=== PATIENT | female | born 1975 | race American Indian/Alaskan Native ===

== ENCOUNTER 2017-02-10 13:05 | Emergency (ER) | payer OTHER ==
[2017-02-10] MEDS ORDERED: TYLENOL PO ONE ×2 (13:25→18:06)
--- NOTE | 2017-02-10 13:26 | Emergency Department Report ---
Chief Complaint: Fever Stated Complaint: DIAB/LOW BLOOD Time Seen by Provider: 02/10/17 13:20 - HPI History of Present Illness: Pt had fever this morning when EMS for shaking. PT has not treated her fever. Family member states that she was advised to take pt to but pt did not have the right insurance - ROS Review of Systems: + generalized weakness + leg pain + fever + chills - Exam Physical Exam: pt is febrile generalized weakness noted MSE screening note: Focused history and physical exam performed. Due to findings the following was ordered: ED Disposition for MSE Condition: Stable
--- NOTE | 2017-02-10 13:57 | XRay Report ---
AP chest x-ray. History: Fever and cough. Findings: There is a questionable subtle nodular density in the fifth right posterior rib interspace. The remainder of the lung cintron is clear. The heart and pulmonary vessels are normal. No pleural fluid is seen. Impression: Possible right pulmonary nodule. CT of the chest may be useful in further evaluation.
[2017-02-10 14:42] LABS: Basophils % (Auto) 0.5 % (0.0-1.8); Eosinophils % (Auto) 0.1 % (0.0-4.3); Hematocrit 40.1 % (30.3-42.9); Hemoglobin 13.1 gm/dl (10.1-14.3); Mean Corpuscular HGB Conc 33 % (30-34); Mean Corpuscular Hemoglobin 27 pg (28-32); Mean Corpuscular Volume 81 fl (79-97); Platelet Count 305 K/mm3 (140-440); Red Blood Count 4.94 M/mm3 (3.65-5.03); Red Cell Distribution Width 12.9 % (13.2-15.2); White Blood Count 13.7 K/mm3 (4.5-11.0)
[2017-02-10 15:01] LABS: Alanine Aminotransferase 33 units/L (7-56); Albumin 3.8 g/dL (3.9-5); Alkaline Phosphatase 112 units/L (35-129); Anion Gap 20 mmol/L; BUN/Creatinine Ratio 6.66; Blood Urea Nitrogen 4 mg/dL (7-17); Calcium 8.9 mg/dL (8.4-10.2); Carbon Dioxide 25 mmol/L (22-30); Chloride 93.9 mmol/L (98-107); Glucose 307 mg/dL (65-100); Potassium 3.5 mmol/L (3.6-5.0); Sodium 135 mmol/L (137-145); Total Protein 7.5 g/dL (6.3-8.2)
[2017-02-10 15:02] LABS: Erythrocyte Sedimentation Rate 37 mm/Hr (0-20)
[2017-02-10] MEDS ORDERED: NACL 0.9% 1000 ML 1,000 ML IV ONE ×2 (16:00→19:15)
[2017-02-10] MEDS ORDERED: NACL 0.9% 1000 ML 2,000 ML IV ONE (17:31)
[2017-02-10] MEDS ORDERED: MOTRIN PO ONE (17:38)
[2017-02-10 17:46] LABS: Bilirubin,Urine NEG (Negative); Blood,Urine NEG (Negative); Ketones,Urine 20 mg/dL (Negative); Leukocyte Esterase,Urine NEG (Negative); Nitrite,Urine NEG (Negative); Protein,Urine <15 mg/dL mg/dL (Negative); Urobilinogen,Urine < 2.0 mg/dL (<2.0)
--- NOTE | 2017-02-10 18:07 | Emergency Department Report ---
ED General Adult HPI - General Chief complaint: Weakness Stated complaint: DIAB/LOW BLOOD Time Seen by Provider: 02/10/17 13:20 Source: patient, family, RN notes reviewed Mode of arrival: Ambulatory Limitations: No Limitations - History of Present Illness Initial comments: This is a 41-year-old female. She is previously unknown to me. She reports a past medical history of diabetes, hypertension, and anemia. She does not have a local primary care doctor. The patient presents to the ER today complaining of myalgias, diffuse body aches, and chills. Symptoms started this morning. There is no neck pain. There is no neck stiffness. Minimal dry cough. No abdominal pain. No irritative obstructive urinary symptoms. No recent antibiotic use. No recent travel. Mild headache. Headache throbbing and global. Headache is not sudden or thunderclap in nature. The symptoms have been constant since this morning. They do not have exacerbating or relieving factors. -: Gradual Severity scale (0 -10): 7 Quality: aching Consistency: constant Improves with: none Worsens with: none Associated Symptoms: cough, fever/chills, headaches, loss of appetite, weakness. denies: confusion, chest pain - Related Data Home Medications Medication Instructions Recorded Confirmed Last Taken Doxylamine Succinate [Unisom] 25 mg PO QHS 02/10/17 02/10/17 02/09/17 traMADol [Ultram] 50 mg PO Q4HR PRN 02/10/17 02/10/17 02/09/17 Previous Rx's Medication Instructions Recorded Last Taken Type Ciprofloxacin HCl [Ciprofloxacin 500 mg PO BID #14 tablet 02/10/17 Unknown Rx TAB] Allergies Allergy/AdvReac Type Severity Reaction Status Date / Time ceftriaxone sodium Allergy Unknown Verified 02/10/17 13:15 [From Rocephin] Penicillins Allergy Unknown Verified 02/10/17 13:15 ED Review of Systems ROS: Stated complaint: DIAB/LOW BLOOD Other details as noted in HPI Constitutional: fever, malaise, weakness Eyes: denies: eye discharge, vision change ENT: throat pain. denies: epistaxis Respiratory: cough Cardiovascular: denies: chest pain Gastrointestinal: denies: nausea, vomiting Genitourinary: denies: urgency, dysuria Musculoskeletal: arthralgia, myalgia Skin: denies: lesions Neurological: headache. denies: numbness, paresthesias, confusion, abnormal gait ED Past Medical Hx - Past Medical History Previous Medical History?: Yes Hx Diabetes: Yes Additional medical history: Low blood - Surgical History Past Surgical History?: No - Social History Smoking Status: Never Smoker Substance Use Type: Prescribed - Medications Home Medications: Home Medications Medication Instructions Recorded Confirmed Last Taken Type Ciprofloxacin HCl [Ciprofloxacin 500 mg PO BID #14 tablet 02/10/17 Unknown Rx TAB] Doxylamine Succinate [Unisom] 25 mg PO QHS 02/10/17 02/10/17 02/09/17 History traMADol [Ultram] 50 mg PO Q4HR PRN 02/10/17 02/10/17 02/09/17 History ED Physical Exam - General Limitations: No Limitations General appearance: alert, in no apparent distress - Head Head exam: Present: atraumatic, normocephalic - Eye Eye exam: Present: normal appearance, PERRL, EOMI, nystagmus - ENT ENT exam: Present: normal exam, normal orophraynx, mucous membranes moist, TM's normal bilaterally, normal external ear exam, other (there is no mastoid tenderness) - Neck Neck exam: Present: normal inspection, full ROM. Absent: tenderness, meningismus (negative jolt accentuation test) - Respiratory Respiratory exam: Present: normal lung sounds bilaterally. Absent: respiratory distress, wheezes, rales, rhonchi, chest wall tenderness, accessory muscle use, decreased breath sounds, prolonged expiratory - Cardiovascular Cardiovascular Exam: Present: normal rhythm, tachycardia, normal heart sounds. Absent: systolic murmur, diastolic murmur, rubs, gallop - GI/Abdominal GI/Abdominal exam: Present: soft, normal bowel sounds. Absent: distended, tenderness, guarding, rebound, rigid, pulsatile mass - Extremities Exam Extremities exam: Present: normal inspection, full ROM, normal capillary refill. Absent: tenderness, pedal edema, joint swelling, calf tenderness - Back Exam Back exam: Present: normal inspection, full ROM. Absent: tenderness, CVA tenderness (R), CVA tenderness (L), muscle spasm, paraspinal tenderness, vertebral tenderness - Neurological Exam Neurological exam: Present: alert, oriented X3, other (Extraocular movements intact. Tongue midline. No facial droop. Facial sensation intact to light touch in the V1, V2, V3 distribution bilaterally. 5 and 5 strength in 4 extremities.. Sensation is intact to light touch in 4 extremities.). Absent: motor sensory deficit - Psychiatric Psychiatric exam: Present: normal affect, normal mood - Skin Skin exam: Present: warm, dry, intact, normal color. Absent: rash ED Course Vital Signs 02/10/17 02/10/17 02/10/17 13:15 15:24 15:30 Temperature 103.2 F H Pulse Rate 68 112 H 111 H Pulse Rate [ Lying] Pulse Rate [ Sitting] Pulse Rate [ Standing] Respiratory 20 13 14 Rate Blood Pressure 125/77 98/66 Blood Pressure [Lying] Blood Pressure [Sitting] Blood Pressure [Standing] O2 Sat by Pulse 100 100 Oximetry 02/10/17 02/10/17 02/10/17 15:40 15:50 15:52 Temperature Pulse Rate 110 H 109 H Pulse Rate [ 111 H Lying] Pulse Rate [ 113 H Sitting] Pulse Rate [ 118 H Standing] Respiratory 18 22 Rate Blood Pressure 89/53 122/76 Blood Pressure 113/67 [Lying] Blood Pressure 103/67 [Sitting] Blood Pressure 89/53 [Standing] O2 Sat by Pulse 100 100 Oximetry 02/10/17 02/10/17 02/10/17 16:00 16:10 16:20 Temperature Pulse Rate 111 H 111 H 114 H Pulse Rate [ Lying] Pulse Rate [ Sitting] Pulse Rate [ Standing] Respiratory 10 L 12 15 Rate Blood Pressure 122/76 106/63 138/78 Blood Pressure [Lying] Blood Pressure [Sitting] Blood Pressure [Standing] O2 Sat by Pulse 100 100 88 Oximetry 02/10/17 02/10/17 02/10/17 16:30 17:14 17:20 Temperature Pulse Rate 110 H 109 H 112 H Pulse Rate [ Lying] Pulse Rate [ Sitting] Pulse Rate [ Standing] Respiratory 15 16 23 Rate Blood Pressure 138/78 121/67 136/82 Blood Pressure [Lying] Blood Pressure [Sitting] Blood Pressure [Standing] O2 Sat by Pulse 100 100 Oximetry 02/10/17 02/10/17 02/10/17 17:30 17:40 17:50 Temperature Pulse Rate 111 H 113 H 130 H Pulse Rate [ Lying] Pulse Rate [ Sitting] Pulse Rate [ Standing] Respiratory 13 16 21 Rate Blood Pressure 136/82 130/80 148/92 Blood Pressure [Lying] Blood Pressure [Sitting] Blood Pressure [Standing] O2 Sat by Pulse 100 100 Oximetry 02/10/17 02/10/17 02/10/17 18:00 18:10 18:22 Temperature Pulse Rate 126 H 128 H 130 H Pulse Rate [ Lying] Pulse Rate [ Sitting] Pulse Rate [ Standing] Respiratory 14 13 10 L Rate Blood Pressure 148/92 139/91 136/82 Blood Pressure [Lying] Blood Pressure [Sitting] Blood Pressure [Standing] O2 Sat by Pulse 86 100 99 Oximetry 02/10/17 02/10/17 02/10/17 18:30 18:33 18:41 Temperature Pulse Rate 122 H 119 H Pulse Rate [ Lying] Pulse Rate [ Sitting] Pulse Rate [ Standing] Respiratory 13 20 16 Rate Blood Pressure 149/93 153/96 Blood Pressure [Lying] Blood Pressure [Sitting] Blood Pressure [Standing] O2 Sat by Pulse 100 Oximetry 02/10/17 02/10/17 02/10/17 18:51 19:00 19:29 Temperature Pulse Rate 125 H 121 H 113 H Pulse Rate [ Lying] Pulse Rate [ Sitting] Pulse Rate [ Standing] Respiratory 16 20 20 Rate Blood Pressure 142/89 134/89 134/89 Blood Pressure [Lying] Blood Pressure [Sitting] Blood Pressure [Standing] O2 Sat by Pulse 90 100 100 Oximetry 02/10/17 02/10/17 02/10/17 19:30 19:41 19:51 Temperature Pulse Rate 112 H 111 H 111 H Pulse Rate [ Lying] Pulse Rate [ Sitting] Pulse Rate [ Standing] Respiratory 12 22 19 Rate Blood Pressure 123/69 123/69 105/61 Blood Pressure [Lying] Blood Pressure [Sitting] Blood Pressure [Standing] O2 Sat by Pulse 100 100 100 Oximetry 02/10/17 02/10/17 20:00 20:11 Temperature Pulse Rate 110 H 109 H Pulse Rate [ Lying] Pulse Rate [ Sitting] Pulse Rate [ Standing] Respiratory 24 23 Rate Blood Pressure 110/61 110/61 Blood Pressure [Lying] Blood Pressure [Sitting] Blood Pressure [Standing] O2 Sat by Pulse 100 100 Oximetry - Reevaluation(s) Reevaluation #1: 02/10/17 18:33 Differential diagnosis: Viral syndrome, viremia, influenza, influenza-like illness, pneumonia, urinary tract infection Assessment and plan: 41-year-old female with acute febrile illness, tachycardia , fever, myalgias for 1 day. Patient is clinically well-appearing, and is not encephalopathic, and has no neck pain or neck stiffness. Her abdomen is benign. Her pulmonary exam is unremarkable. Laboratory studies are reviewed. Clinically doubt urinary tract infection given lack of symptoms and urinalysis. X-ray of the chest not consistent with pneumonia. Has a mild headache with may be associated with her fever, tachycardia, and relative volume depletion. However, given her current clinical presentation, it is not consistent with meningitis or intracranial infection. Her pharyngeal exam is also unremarkable , and the patient is low risk by Centor score. Reevaluation #2: 02/10/17 18:36 x-ray of the chest did suggest a possible right sided pulmonary nodule. On direct inspection it is a very subtle finding, the patient does not have any pulmonary findings, she does not have any risk factors to suggest pulmonary embolus. I don't believe she requires an emergent CT scan of the chest, and she can further follow up with an outpatient primary care doctor for further evaluation and management of this incidentaloma. Reevaluation #3: 02/10/17 19:18 patient is still persistently tachycardic in spite of adequate volume resuscitation, and multiple antipyretic medications. She does complain of mild frontal headache, but is not encephalopathic, and not meningitic. The patient is ruling in for systemic inflammatory response syndrome. The case is presented to the Hospital physician, Dr. Fournier, who accepts the patient to his service. The patient will be admitted for further evaluation and management, persistently abnormal vital signs, systemic inflammatory response syndrome. Blood cultures, urine cultures will be ordered. Levaquin ordered emperically by Dr Fournier 02/10/17 19:20 ED Medical Decision Making - Lab Data Result diagrams: 02/10/17 14:08 02/10/17 14:07 Lab Results 02/10/17 02/10/17 02/10/17 Range/Units 13:23 14:07 14:07 WBC (4.5-11.0) K/mm3 RBC (3.65-5.03) M/mm3 Hgb (10.1-14.3) gm/dl Hct (30.3-42.9) % MCV (79-97) fl MCH (28-32) pg MCHC (30-34) % RDW (13.2-15.2) % Plt Count (140-440) K/mm3 Lymph % (Auto) (13.4-35.0) % Mccone % (Auto) (0.0-7.3) % Eos % (Auto) (0.0-4.3) % Baso % (Auto) (0.0-1.8) % Lymph # (1.2-5.4) K/mm3 Mccone # (0.0-0.8) K/mm3 Eos # (0.0-0.4) K/mm3 Baso # (0.0-0.1) K/mm3 Seg Neutrophils % (40.0-70.0) % Seg Neutrophils # (1.8-7.7) K/mm3 ESR (0-20) mm/Hr Sodium 135 L (137-145) mmol/L Potassium 3.5 L (3.6-5.0) mmol/L Chloride 93.9 L (98-107) mmol/L Carbon Dioxide 25 (22-30) mmol/L Anion Gap 20 mmol/L BUN 4 L (7-17) mg/dL Creatinine 0.6 L (0.7-1.2) mg/dL Estimated GFR > 60 ml/min BUN/Creatinine Ratio 6.66 % Glucose 307 H (65-100) mg/dL POC Glucose 295 H (70-105) Lactic Acid (0.7-2.0) mmol/L Calcium 8.9 (8.4-10.2) mg/dL Total Bilirubin 0.80 (0.1-1.2) mg/dL AST 26 (5-40) units/L ALT 33 (7-56) units/L Alkaline Phosphatase 112 (35-129) units/L Total Creatine Kinase 81 (30-135) units/L C-Reactive Protein 1.60 H (0.00-1.30) mg/dL Total Protein 7.5 (6.3-8.2) g/dL Albumin 3.8 L (3.9-5) g/dL Albumin/Globulin Ratio 1.0 % HCG, Quant (0-4) mIU/mL Urine Color (Yellow) Urine Turbidity (Clear) Urine pH (5.0-7.0) Ur Specific [place] (1.003-1.030) Urine Protein (Negative) mg/dL Urine Glucose (UA) (Negative) mg/dL Urine Ketones (Negative) mg/dL Urine Blood (Negative) Urine Nitrite (Negative) Urine Bilirubin (Negative) Urine Urobilinogen (<2.0) mg/dL Ur Leukocyte Esterase (Negative) Urine WBC (Auto) (0.0-6.0) /HPF Urine RBC (Auto) (0.0-6.0) /HPF U Epithel Cells (Auto) (0-13.0) /HPF 02/10/17 02/10/17 02/10/17 Range/Units 14:08 14:08 16:35 WBC 13.7 H (4.5-11.0) K/mm3 RBC 4.94 (3.65-5.03) M/mm3 Hgb 13.1 (10.1-14.3) gm/dl Hct 40.1 (30.3-42.9) % MCV 81 (79-97) fl MCH 27 L (28-32) pg MCHC 33 (30-34) % RDW 12.9 L (13.2-15.2) % Plt Count 305 (140-440) K/mm3 Lymph % (Auto) 5.0 L (13.4-35.0) % Mccone % (Auto) 4.7 (0.0-7.3) % Eos % (Auto) 0.1 (0.0-4.3) % Baso % (Auto) 0.5 (0.0-1.8) % Lymph # 0.7 L (1.2-5.4) K/mm3 Mccone # 0.6 (0.0-0.8) K/mm3 Eos # 0.0 (0.0-0.4) K/mm3 Baso # 0.1 (0.0-0.1) K/mm3 Seg Neutrophils % 89.7 H (40.0-70.0) % Seg Neutrophils # 12.3 H (1.8-7.7) K/mm3 ESR 37 (0-20) mm/Hr Sodium (137-145) mmol/L Potassium (3.6-5.0) mmol/L Chloride (98-107) mmol/L Carbon Dioxide (22-30) mmol/L Anion Gap mmol/L BUN (7-17) mg/dL Creatinine (0.7-1.2) mg/dL Estimated GFR ml/min BUN/Creatinine Ratio % Glucose (65-100) mg/dL POC Glucose (70-105) Lactic Acid 1.50 1.60 (0.7-2.0) mmol/L Calcium (8.4-10.2) mg/dL Total Bilirubin (0.1-1.2) mg/dL AST (5-40) units/L ALT (7-56) units/L Alkaline Phosphatase (35-129) units/L Total Creatine Kinase (30-135) units/L C-Reactive Protein (0.00-1.30) mg/dL Total Protein (6.3-8.2) g/dL Albumin (3.9-5) g/dL Albumin/Globulin Ratio % HCG, Quant (0-4) mIU/mL Urine Color (Yellow) Urine Turbidity (Clear) Urine pH (5.0-7.0) Ur Specific [place] (1.003-1.030) Urine Protein (Negative) mg/dL Urine Glucose (UA) (Negative) mg/dL Urine Ketones (Negative) mg/dL Urine Blood (Negative) Urine Nitrite (Negative) Urine Bilirubin (Negative) Urine Urobilinogen (<2.0) mg/dL Ur Leukocyte Esterase (Negative) Urine WBC (Auto) (0.0-6.0) /HPF Urine RBC (Auto) (0.0-6.0) /HPF U Epithel Cells (Auto) (0-13.0) /HPF 02/10/17 02/10/17 Range/Units 17:26 17:42 WBC (4.5-11.0) K/mm3 RBC (3.65-5.03) M/mm3 Hgb (10.1-14.3) gm/dl Hct (30.3-42.9) % MCV (79-97) fl MCH (28-32) pg MCHC (30-34) % RDW (13.2-15.2) % Plt Count (140-440) K/mm3 Lymph % (Auto) (13.4-35.0) % Mccone % (Auto) (0.0-7.3) % Eos % (Auto) (0.0-4.3) % Baso % (Auto) (0.0-1.8) % Lymph # (1.2-5.4) K/mm3 Mccone # (0.0-0.8) K/mm3 Eos # (0.0-0.4) K/mm3 Baso # (0.0-0.1) K/mm3 Seg Neutrophils % (40.0-70.0) % Seg Neutrophils # (1.8-7.7) K/mm3 ESR (0-20) mm/Hr Sodium (137-145) mmol/L Potassium (3.6-5.0) mmol/L Chloride (98-107) mmol/L Carbon Dioxide (22-30) mmol/L Anion Gap mmol/L BUN (7-17) mg/dL Creatinine (0.7-1.2) mg/dL Estimated GFR ml/min BUN/Creatinine Ratio % Glucose (65-100) mg/dL POC Glucose (70-105) Lactic Acid (0.7-2.0) mmol/L Calcium (8.4-10.2) mg/dL Total Bilirubin (0.1-1.2) mg/dL AST (5-40) units/L ALT (7-56) units/L Alkaline Phosphatase (35-129) units/L Total Creatine Kinase (30-135) units/L C-Reactive Protein (0.00-1.30) mg/dL Total Protein (6.3-8.2) g/dL Albumin (3.9-5) g/dL Albumin/Globulin Ratio % HCG, Quant < 2 (0-4) mIU/mL Urine Color Yellow (Yellow) Urine Turbidity Clear (Clear) Urine pH 8.0 H (5.0-7.0) Ur Specific [place] 1.024 (1.003-1.030) Urine Protein <15 mg/dl (Negative) mg/dL Urine Glucose (UA) >=500 (Negative) mg/dL Urine Ketones 20 (Negative) mg/dL Urine Blood Neg (Negative) Urine Nitrite Neg (Negative) Urine Bilirubin Neg (Negative) Urine Urobilinogen < 2.0 (<2.0) mg/dL Ur Leukocyte Esterase Neg (Negative) Urine WBC (Auto) 1.0 (0.0-6.0) /HPF Urine RBC (Auto) 2.0 (0.0-6.0) /HPF U Epithel Cells (Auto) 2.0 (0-13.0) /HPF Vital Signs 07/18/17 07/18/17 07/18/17 13:15 15:24 15:30 Temperature 103.2 F H Pulse Rate 68 112 H 111 H Pulse Rate [ Lying] Pulse Rate [ Sitting] Pulse Rate [ Standing] Respiratory 20 13 14 Rate Blood Pressure 125/77 98/66 Blood Pressure [Lying] Blood Pressure [Sitting] Blood Pressure [Standing] O2 Sat by Pulse 100 100 Oximetry 02/10/17 02/10/17 02/10/17 15:40 15:50 15:52 Temperature Pulse Rate 110 H 109 H Pulse Rate [ 111 H Lying] Pulse Rate [ 113 H Sitting] Pulse Rate [ 118 H Standing] Respiratory 18 22 Rate Blood Pressure 89/53 122/76 Blood Pressure 113/67 [Lying] Blood Pressure 103/67 [Sitting] Blood Pressure 89/53 [Standing] O2 Sat by Pulse 100 100 Oximetry 02/10/17 02/10/17 02/10/17 16:00 16:10 16:20 Temperature Pulse Rate 111 H 111 H 114 H Pulse Rate [ Lying] Pulse Rate [ Sitting] Pulse Rate [ Standing] Respiratory 10 L 12 15 Rate Blood Pressure 122/76 106/63 138/78 Blood Pressure [Lying] Blood Pressure [Sitting] Blood Pressure [Standing] O2 Sat by Pulse 100 100 88 Oximetry 02/10/17 02/10/17 02/10/17 16:30 17:14 17:20 Temperature Pulse Rate 110 H 109 H 112 H Pulse Rate [ Lying] Pulse Rate [ Sitting] Pulse Rate [ Standing] Respiratory 15 16 23 Rate Blood Pressure 138/78 121/67 136/82 Blood Pressure [Lying] Blood Pressure [Sitting] Blood Pressure [Standing] O2 Sat by Pulse 100 100 Oximetry 02/10/17 02/10/17 18:22 18:33 Temperature Pulse Rate 130 H Pulse Rate [ Lying] Pulse Rate [ Sitting] Pulse Rate [ Standing] Respiratory 10 L 20 Rate Blood Pressure 136/82 Blood Pressure [Lying] Blood Pressure [Sitting] Blood Pressure [Standing] O2 Sat by Pulse 99 Oximetry Critical care attestation.: If time is entered above; I have spent that time in minutes in the direct care of this critically ill patient, excluding procedure time. ED Disposition Clinical Impression: SIRS (systemic inflammatory response syndrome) Disposition: OP ADMIT IP TO THIS HOSP Is pt being admited?: Yes Condition: Good Additional Instructions: Follow-up with the primary care doctor within the next month. X-ray of the chest suggested a possible nodule on the right hemithorax/lung field. Therefore , he should follow up with the primary care doctor is recommended. Not following up with a primary care doctor for this may result an undiagnosed tumor /cancer/malignancy. Prescriptions: Ciprofloxacin HCl [Ciprofloxacin TAB] 500 mg PO BID #14 tablet Referrals: PRIMARY CARE, [Primary Care Provider] - 3-5 Days
[2017-02-10] MEDS ORDERED: REGLAN IV ONE (18:59)
--- NOTE | 2017-02-10 19:14 | History and Physical Report ---
Medications and Allergies Allergies Allergy/AdvReac Type Severity Reaction Status Date / Time ceftriaxone sodium Allergy Unknown Verified 02/10/17 13:15 [From Rocephin] Penicillins Allergy Unknown Verified 02/10/17 13:15 Home Medications Medication Instructions Recorded Confirmed Last Taken Type Doxylamine Succinate [Unisom] 25 mg PO QHS 02/10/17 02/10/17 02/09/17 History traMADol [Ultram] 50 mg PO Q4HR PRN 02/10/17 02/10/17 02/09/17 History Exam - Constitutional Vitals: Temp Pulse Resp BP Pulse Ox 103.2 F H 119 H 16 153/96 100 02/10/17 13:15 02/10/17 18:41 02/10/17 18:41 02/10/17 18:41 02/10/17 18:41 Results - Labs CBC & Chem 7: 02/10/17 14:08 02/10/17 14:07 Labs: Abnormal lab results 02/10/17 02/10/17 02/10/17 Range/Units 13:23 14:07 14:08 WBC 13.7 H (4.5-11.0) K/mm3 MCH 27 L (28-32) pg RDW 12.9 L (13.2-15.2) % Lymph % (Auto) 5.0 L (13.4-35.0) % Lymph # 0.7 L (1.2-5.4) K/mm3 Seg Neutrophils % 89.7 H (40.0-70.0) % Seg Neutrophils # 12.3 H (1.8-7.7) K/mm3 Sodium 135 L (137-145) mmol/L Potassium 3.5 L (3.6-5.0) mmol/L Chloride 93.9 L (98-107) mmol/L BUN 4 L (7-17) mg/dL Creatinine 0.6 L (0.7-1.2) mg/dL Glucose 307 H (65-100) mg/dL POC Glucose 295 H (70-105) C-Reactive Protein 1.60 H (0.00-1.30) mg/dL Albumin 3.8 L (3.9-5) g/dL Urine pH (5.0-7.0) 02/10/17 Range/Units 17:26 WBC (4.5-11.0) K/mm3 MCH (28-32) pg RDW (13.2-15.2) % Lymph % (Auto) (13.4-35.0) % Lymph # (1.2-5.4) K/mm3 Seg Neutrophils % (40.0-70.0) % Seg Neutrophils # (1.8-7.7) K/mm3 Sodium (137-145) mmol/L Potassium (3.6-5.0) mmol/L Chloride (98-107) mmol/L BUN (7-17) mg/dL Creatinine (0.7-1.2) mg/dL Glucose (65-100) mg/dL POC Glucose (70-105) C-Reactive Protein (0.00-1.30) mg/dL Albumin (3.9-5) g/dL Urine pH 8.0 H (5.0-7.0)
[2017-02-10] MEDS ORDERED: LEVAQUIN 750MG/150ML 750 MG/150 ML BAG IV SCH (19:15)
--- NOTE | 2017-02-10 19:17 | Admit Criteria Form ---
Admission Criteria Documentation: FEVER Clinical Indications for Inpatient Care (Place 'X' for any and all applicable criteria): Ongoing inpatient care may be indicated for fever with ANY ONE of the following[ D] (5)(27)(28)(29)(30)(31): [ ]I. Bacteremia [ ]II. Evidence of significant systemic illness as indicated by ANY ONE of the following: [ ]a) Persistently high temperatures greater than 103.1 degrees F ( 39.5 degrees C) (oral) [ ]b) New-onset hypoxia [ ]c) Hemodynamic instability [ ]d) Mental status changes [ ]e) Decreased urine output due to developing renal insufficiency [ ]f) New focal neurologic deficit (eg, stroke) [ ]g) Seizures [ ]h) Rigors [ ]i) Dehydration or hypovolemia [ ]j) Inadequate oral intake [ ]III. Patient in the immediate postoperative period with ANY ONE of the following (E)(23)(24): [ ]a) Evidence of specific localizing infection requiring ongoing inpatient evaluation or treatment (eg,abscess, severe pneumonia, wound infection ) [ ]b) Known or suspected cause of fever requiring ongoing inpatient evaluation or treatment (eg, DVT) [ ]c) Evidence of malignant hyperthermia (eg, unexplained tachycardia and muscle rigidity after depolarizing muscular blocking agent or inhaled anesthetic agent) [ ]IV. Suspected cause requiring acute care (eg, endocarditis, meningitis) [ ]V. High suspicion of bacteremia as indicated by severe constitutional symptoms in patient at high risk as indicated by ANY ONE of the following: [ ]a) Immunocompromised state [D](22) [ ]b) Age <3 years or >65 years [ ]c) Severe comorbidities (eg, poorly controlled diabetes, severe COPD) [ ]. High suspicion for fungal infection as indicated by ANY ONE of the following (22)(25): [ ]a) Febrile neutropenia (WBC <500/mm3 (0.5 X 109/L)) for >4 days despite broad spectrum antibiotics [ ]b) Imaging findings suggestive of fungal infection [ ]c) Immunocompromised state [ ]d) Immunocompromised patient colonized with Aspergillus species [ ]VII. Evidence of infection of medical devices such as implanted catheters or exposed hardware [ ]VIII. Suspected neuroleptic malignant syndrome as evidenced by ALL of the following (15): [ ]a) Recent use of neuroleptic medication (eg, haloperidol, prochlorperazine, metoclopramide) [ ]b) New-onset muscle rigidity Extended stay beyond goal length of stay for primary condition may be needed until ALL of the following are present(16)(17)(18)(19)(20)(21): [ ]a) Temperature status acceptable as indicated by ANY ONE of the following: [ ]i) Temp <38.1C (100.5 F) (oral) [ ]ii) Temp as expected for disease process and care performable at next level of care [ ]b) Hemodynamic stability [ ]c) Cultures negative or infection identified and under adequate treatment [ ]d) Behavior or mental status abnormalities absent or manageable at lower level of care (Also use Mental Status Change Criteria Form) for further information. [ ]e) Medical comorbidities absent or manageable at a lower level of care The original [facility] [employer] content created by [facility] has been revised. The portions of the content which have been revised are identified through the use of italic text or in bold, and [facility] has neither reviewed nor approved the modified material. All other unmodified content is copyright [facility] Please see references footnoted in the original [facility] edition 2016
[2017-02-10 20:23] VITALS: BP 110/61
== END 2017-02-10 21:00 ==
LOC: ED 13:05
DX: R53.1 Weakness (principal); M79.1 Myalgia; R05 Cough; R51 Headache; R07.0 Pain in throat; R50.9 Fever, unspecified; E11.9 Type 2 diabetes mellitus without complications; Z88.1 Allergy status to other antibiotic agents; Z88.0 Allergy status to penicillin
CPT/HCPCS: 36415; 71010; 80053; 81001; 82140; 82550; 82962; 84702; 85025; 85379; 85652; 86140; 87040; 87086; 87400; 93005; 93010; 96361; 96365; 96375; 99284; J1956; J2765; J7030

== ENCOUNTER 2018-01-30 18:57 | Emergency (ER) | payer SELFPAY ==
[2018-01-30 19:42] VITALS: BP 169/86
[2018-01-30 21:11] LABS: HCG Qualitative,Urine Negative (Negative)
[2018-01-30 21:14] LABS: Bacteria,Urine 1+ /HPF (Negative); Bilirubin,Urine NEG (Negative); Blood,Urine NEG (Negative); Color,Urine Yellow (Yellow); Mucus,Urine FEW /HPF; Protein,Urine <15 mg/dL mg/dL (Negative)
[2018-01-30 21:16] LABS: Hematocrit 35.6 % (30.3-42.9); Hemoglobin 12.3 gm/dl (10.1-14.3); Mean Corpuscular HGB Conc 35 % (30-34); Mean Corpuscular Hemoglobin 27 pg (28-32); Mean Corpuscular Volume 79 fl (79-97); Platelet Count 301 K/mm3 (140-440); Red Blood Count 4.49 M/mm3 (3.65-5.03); Red Cell Distribution Width 13.2 % (13.2-15.2)
[2018-01-30 21:40] LABS: Alanine Aminotransferase 20 units/L (7-56); Albumin 4.5 g/dL (3.9-5); BUN/Creatinine Ratio 18; Blood Urea Nitrogen 14 mg/dL (7-17); Calcium 10.3 mg/dL (8.4-10.2); Hemolysis Index 0
== END 2018-01-30 21:06 | disposition left against medical advice (07) ==
LOC: ED 18:57
DX: R42 Dizziness and giddiness (principal); Z53.21 Procedure and treatment not carried out due to patient leaving prior to being seen by health care provider
CPT/HCPCS: 36415; 80053; 81001; 81025; 85025; 93005; 93010

== ENCOUNTER 2019-03-17 17:12 | Emergency (ER) | payer MEDICAID ==
--- NOTE | 2019-03-17 17:17 | Event Note ---
ED Screening Note ED Screening Note: slipped and fell in the bathroom states she has tingling in the bilateral hands no pain in the BUE no pain in the neck or back did not hit head or have LOC no CP This initial assessment/diagnostic orders/clinical plan/treatment(s) is/are subject to change based on patients health status, clinical progression and re- assessment by fellow clinical providers in the ED. Further treatment and workup at subsequent clinical providers discretion. Patient/guardian urged not to elope from the ED as their condition may be serious if not clinically assessed and managed.
[2019-03-17 17:18] VITALS: BP 154/93
[2019-03-17] MEDS ORDERED: IBUPROFEN PO ONE (18:55)
--- NOTE | 2019-03-17 18:58 | Emergency Department Report ---
ED Upper Extremity Inj HPI - General Chief Complaint: Extremity Injury, Upper Stated Complaint: BOTH HAND(S) PAIN Time Seen by Provider: 03/17/19 17:15 Source: patient Mode of arrival: Ambulatory Limitations: No Limitations - History of Present Illness Initial Comments: This is a 43-year-old female nontoxic, well nourished in appearance, no acute signs of distress presents to the ED with c/o of bilateral hand pain 1 day. Patient stated that she had a fall and now has pain and tingling sensation. Patient denies any other trauma. Patient denies any numbness, tingling, fever, chills, nausea, vomiting, chest pain, shortness of breath, headache, stiff neck. Patient denies any joint swelling or joint redness. Patient denies decreased range of motion. Patient stated allergies to Rocephin, Dilaudid and penicillin and sulfa but denies any drug allergies to Tylenol with Codeine. MD Complaint: Injury to:: left, right, hand -: days(s) (1) Other Extremity Injury: Hand: Left, Right Other Injuries: none Place: home Severity scale (0 -10): 8 Improves With: immobilization Worsens With: movement of extremity Context: fall Associated Symptoms: other (tingling senastion). denies: weakness, numbness, neck pain, suspects foreign body, nausea/vomiting, heard/felt popping sensat - Related Data Home Medications Medication Instructions Recorded Confirmed Last Taken Doxylamine Succinate [Unisom] 25 mg PO QHS 02/10/17 02/10/17 02/09/17 traMADol [Ultram] 50 mg PO Q4HR PRN 02/10/17 02/10/17 02/09/17 Previous Rx's Medication Instructions Recorded Last Taken Type Ciprofloxacin HCl [Ciprofloxacin 500 mg PO BID #14 tablet 02/10/17 Unknown Rx TAB] Acetaminophen/Codeine [Tylenol 1 tab PO Q6H PRN #12 tab 03/17/19 Unknown Rx /Codeine # 3 tab] Ibuprofen [Motrin] 600 mg PO Q8H PRN #20 tablet 03/17/19 Unknown Rx Allergies Allergy/AdvReac Type Severity Reaction Status Date / Time ceftriaxone sodium Allergy Unknown Verified 03/17/19 17:12 [From Rocephin] hydromorphone [From Dilaudid] Allergy Anaphylaxis Verified 03/17/19 17:12 Penicillins Allergy Unknown Verified 03/17/19 17:12 Sulfa (Sulfonamide Allergy Itching Verified 03/17/19 17:12 Antibiotics) ED Review of Systems ROS: Stated complaint: BOTH HAND(S) PAIN Other details as noted in HPI Constitutional: denies: chills, fever Eyes: denies: eye pain, eye discharge, vision change ENT: denies: ear pain, throat pain Respiratory: denies: cough, shortness of breath, wheezing Cardiovascular: denies: chest pain, palpitations Endocrine: no symptoms reported Gastrointestinal: denies: abdominal pain, nausea, diarrhea Genitourinary: denies: urgency, dysuria, discharge Musculoskeletal: denies: back pain, joint swelling, arthralgia Skin: denies: rash, lesions Neurological: denies: headache, weakness, paresthesias Psychiatric: denies: anxiety, depression Hematological/Lymphatic: denies: easy bleeding, easy bruising ED Past Medical Hx - Past Medical History Hx Diabetes: Yes Additional medical history: Low blood - Surgical History Additional Surgical History: x3 - Social History Smoking Status: Never Smoker Substance Use Type: None - Medications Home Medications: Home Medications Medication Instructions Recorded Confirmed Last Taken Type Ciprofloxacin HCl [Ciprofloxacin 500 mg PO BID #14 tablet 02/10/17 Unknown Rx TAB] Doxylamine Succinate [Unisom] 25 mg PO QHS 02/10/17 02/10/17 02/09/17 History traMADol [Ultram] 50 mg PO Q4HR PRN 02/10/17 02/10/17 02/09/17 History Acetaminophen/Codeine [Tylenol 1 tab PO Q6H PRN #12 tab 03/17/19 Unknown Rx /Codeine # 3 tab] Ibuprofen [Motrin] 600 mg PO Q8H PRN #20 tablet 03/17/19 Unknown Rx ED Physical Exam - General Limitations: No Limitations General appearance: alert, in no apparent distress - Head Head exam: Present: atraumatic, normocephalic - Extremities Exam Extremities exam: Present: normal inspection, full ROM, normal capillary refill. Absent: tenderness, joint swelling, calf tenderness - Expanded Upper Extremity Exam Left General: Present: normal inspection (bilateral exam) Shoulder Exam: Present: normal inspection (bilateral exam), full ROM (bilateral exam). Absent: tenderness Upper Arm exam: Present: normal inspection (bilateral exam), full ROM (bilateral exam). Absent: tenderness Elbow exam: Present: normal inspection (bilateral exam), full ROM (bilateral exam). Absent: tenderness Forearm Wrist exam: Present: normal inspection (bilateral exam), full ROM (bilateral exam). Absent: tenderness, swelling, abrasion, laceration, ecchymosis, deformity, crepidus, dislocation, erythema, tenderness over anatomical snuff box, pain with axial thumb loading Hand Wrist exam: Present: normal inspection (bilateral exam), full ROM (bilateral exam). Absent: tenderness, swelling, abrasion, laceration, ecchymosis, deformity, crepidus, dislocation, erythema, amputation, nail avulsion, subungual hematoma Vascular: Present: vascular compromise (bilateral exam), normal capillary refill (bilateral exam) - Back Exam Back exam: Present: normal inspection, full ROM. Absent: tenderness, CVA tenderness (R), CVA tenderness (L), muscle spasm, paraspinal tenderness, vertebral tenderness, rash noted - Neurological Exam Neurological exam: Present: alert, oriented X3, normal gait - Psychiatric Psychiatric exam: Present: normal affect, normal mood - Skin Skin exam: Present: warm, dry, intact, normal color. Absent: rash ED Course Vital Signs 03/17/19 03/17/19 17:15 19:04 Temperature 97.8 F Pulse Rate 112 H Respiratory 16 18 Rate Blood Pressure 154/93 [Left] O2 Sat by Pulse 100 Oximetry - Reevaluation(s) Reevaluation #1: 03/17/19 20:39 Patient is speaking in full sentences with no signs of distress noted. ED Medical Decision Making - Medical Decision Making This is a 43-year-old female that presents with bilateral hand strain. Patient is stable and was examined by me. I referred patient to an orthopedic doctor for further evaluation for possible MRI. X-ray has been obtained and dictated by the radiologist. Patient is notified of the x-ray report with noted by the patient. Patient does have normal gait with no tenderness and no joint swelling. Neurovascular intact. No ecchymosis. no joint redness or swelling. Not warm to touch. No signs of cellulites present. Patient was instructed to RICE therapy. Patient received Tynoel #3 for pain instead a family member will junk patient home after discharge due to possible drowsiness.. Patient is discharged with Motrin. At time of discharge, the patient does not seem toxic or ill in appearance. No acute signs of distress noted. Patient agrees to discharge treatment plan of care. No further questions noted by the patient. Critical care attestation.: If time is entered above; I have spent that time in minutes in the direct care of this critically ill patient, excluding procedure time. ED Disposition Clinical Impression: Repetitive strain injury of both hands Disposition: TO HOME OR SELFCARE Is pt being admited?: No Does the pt Need Aspirin: No Condition: Stable Instructions: RICE Therapy (ED), Acetaminophen/Codeine (By mouth) Additional Instructions: Follow-up with a orthopedic doctor in 3-5 days or if symptoms worsen and continue return to emergency room as soon as possible. Do not operate any machinery while taking Tylenol with codeine as this may cause drowsiness. Prescriptions: Ibuprofen [Motrin] 600 mg PO Q8H PRN #20 tablet PRN Reason: Pain Acetaminophen/Codeine [Tylenol /Codeine # 3 tab] 1 tab PO Q6H PRN #12 tab PRN Reason: Pain , Severe (7-10) Referrals: PRIMARY CAREMD [Primary Care Provider] - 3-5 Days AMITA MCMAHON MD [Staff Physician] - 3-5 Days [facility] [Outside] - 3-5 Days Forms: Work/School Release Form(ED)
--- NOTE | 2019-03-17 19:49 | XRay Report ---
BILATERAL HANDS 6 VIEWS INDICATION / CLINICAL INFORMATION: Bilateral hand pain after fall and landing on hands. COMPARISON: None available. FINDINGS: BONES and JOINT(S): No acute fracture or subluxation. No significant arthritis. SOFT TISSUES: No significant abnormality. ADDITIONAL FINDINGS: None. IMPRESSION: No acute abnormality of the hands. Signer Name: Keegan Mahan MD Signed: 03/17/2019 7:44 PM Workstation Name: [id number]
[2019-03-17] MEDS ORDERED: TYLENOL #3 PO ONE (19:52)
[2019-03-17] MEDS ORDERED: TYLENOL #3 ONE (19:55)
== END 2019-03-17 21:00 | disposition home or self-care (01) ==
LOC: ED 17:12
DX: S66.912A Strain of unspecified muscle, fascia and tendon at wrist and hand level, left hand, initial encounter (principal); S66.911A Strain of unspecified muscle, fascia and tendon at wrist and hand level, right hand, initial encounter; E11.9 Type 2 diabetes mellitus without complications; Z79.899 Other long term (current) drug therapy; Z88.6 Allergy status to analgesic agent; Z88.1 Allergy status to other antibiotic agents; Z88.0 Allergy status to penicillin; Z88.2 Allergy status to sulfonamides; W18.30XA Fall on same level, unspecified, initial encounter; Y93.89 Activity, other specified; Y92.098 Other place in other non-institutional residence as the place of occurrence of the external cause; Y99.8 Other external cause status
CPT/HCPCS: 99283